=== PATIENT | female | born 1955 | race Caucasian/White ===

== ENCOUNTER 2023-07-24 14:53 | Outpatient (OUT) | payer MEDICARE, OTHER, SELFPAY ==
[2023-07-24 15:34] LABS: Basophils Percent Auto 0.5 % (0.2-2.0); Eosinophils Absolute Auto 0.1 10^3/uL (0.0-0.7); Hematocrit 34.1 % (36.0-48.0); Hemoglobin 11.3 g/dL (12.0-16.0); Immature Granulocytes Abs Auto 0.01 10^3/uL (0.00-0.03); Immature Granulocytes Pct Auto 0.2 % (0.0-0.5); Lymphocytes Absolute Auto 2.4 10^3/uL (1.2-3.8); Lymphocytes Percent Auto 39.2 % (20.5-60.0); Mean Corpuscular HGB Conc 33.1 g/dL (29.9-35.2); Mean Corpuscular Hemoglobin 32.6 pg (26.7-34.0); Mean Corpuscular Volume 98.3 fL (81.0-99.0); Mean Platelet Volume 7.7 fL (9.5-13.5); Monocytes Absolute Auto 0.6 10^3/uL (0.3-0.8); Neutrophils Percent Auto 49.1 % (43.0-75.0); Platelet Count 317 10^3/uL (150-450); Red Blood Count 3.47 10^6/uL (4.20-5.40); Red Cell Distribution Width 12.2 % (11.0-15.0); White Blood Count 6.1 10^3/uL (4.0-11.0)
[2023-07-24 15:40] LABS: Erythrocyte Sedimentation Rate 10 mm/hr (<=30)
[2023-07-24 15:47] LABS: Bilirubin Urine NEGATIVE (NEGATIVE); Blood Urine SMALL (NEGATIVE); Clarity Urine CLEAR (CLEAR); Color Urine LT. YELLOW (YELLOW); Glucose Urine UA NEGATIVE (NEGATIVE); Ketones Urine NEGATIVE (NEGATIVE); Leukocyte Esterase Urine NEGATIVE (NEGATIVE); Nitrite Urine NEGATIVE (NEGATIVE); Protein Urine NEGATIVE (NEG/TRACE); Specific Gravity Urine <=1.005 (1.005-1.025); Urobilinogen Urine 0.2 EU/dL (0.2-1.0)
[2023-07-24 15:57] LABS: Bacteria Urine NONE SEEN #/HPF (NONE SEEN); Cast Seen? NONE SEEN #/LPF (NONE SEEN); Crystals Seen? None Seen #/HPF (None Seen); Mucus Urine NONE SEEN (NONE SEEN); Squamous Epithelial Cell Urine FEW #/LPF (NONE/RARE); Urine Culture Indicated NO; WBC Urine NONE SEEN #/HPF (NONE SEEN)
[2023-07-24 16:01] LABS: C Reactive Protein <0.2 mg/dL (<=1.0); Estimated GFR (African America >60 (>=60); Estimated GFR (Non-African Ame 56 (>=60)
[2023-07-25 05:12] LABS: Complement C3, Serum 129 mg/dL (82-167); Complement C4, Serum 18 mg/dL (12-38)
== END 2023-07-24 14:54 | disposition home or self-care (01) ==
LOC: LAB 14:59
PROVIDERS: PCP Family Medicine; Visit Provider Internal Medicine Rheumatology
DX: M35.9 Systemic involvement of connective tissue, unspecified (principal)
CPT/HCPCS: 36415; 81001; 82565; 85025; 85652; 86140; 86160